=== PATIENT | female | born 1985 | race African-American/Black ===

== ENCOUNTER → 2019-08-13 15:37 | Outpatient (CLI) | payer OTHER, SELFPAY ==
[2019-08-13 17:51] LABS: Erythrocyte Sedimentation Rate 13 mm/hr (0-20)
[2019-08-13 18:01] LABS: CRP < 2.90 mg/L (0.0-3.0)
[2019-08-13 18:10] LABS: Vitamin B12 519 pg/mL (211-911)
== END ==
PROVIDERS: Family Provider Family Medicine; PCP Family Medicine; Visit Provider Family Medicine
DX: M25.551 Pain in right hip (principal); R20.2 Paresthesia of skin; G51.4 Facial myokymia
CPT/HCPCS: 36415; 82607; 85652; 86140

== ENCOUNTER → 2019-08-13 17:55 | Outpatient (CLI) | payer OTHER, SELFPAY ==
[2019-04-04 10:57] VITALS: BMI 23.5
--- NOTE | 2019-08-13 18:05 | RAD_ITS ---
STUDY: X-RAY - PELVIS AND RIGHT HIP REASON FOR EXAM: Female, 34 years old. Pain TECHNIQUE: 3 views of the pelvis and hip. COMPARISON: None. FINDINGS: There is a non-specific bowel gas pattern. Mild colonic fecal retention. Normal visualized soft tissue structures. Normal bilateral iliac wings, sacroiliac joints and visualized sacrum. Normal bilateral superior and inferior pubic rami. Normal pubic symphysis. Normal bilateral ischial tuberosities. Normal visualized femoral head. Normal acetabulum. Normal hip joint. RAD/HIP, UNI W/ Pelvis 2-3 Views IMPRESSION: Normal x-ray examination of the pelvis and hip. Electronically Signed: Alex Garner DO at 0:03 EDT Tel [phone], Service support ,
== END ==
PROVIDERS: Family Provider Family Medicine; PCP Family Medicine; Referring Provider Family Medicine; Visit Provider Family Medicine
DX: M25.551 Pain in right hip (principal)
CPT/HCPCS: 73502

== ENCOUNTER → 2020-12-25 | Outpatient (CLI) | payer BC, SELFPAY ==
[2020-12-25 13:08] VITALS: BMI 21.4
[2020-12-30 16:26] LABS: HPV APTIMA, High Risk Negative (Negative)
== END | disposition home or self-care (01) ==
LOC: LABSPEC 16:47
PROVIDERS: PCP Family Medicine; Referring Provider Obstetrics & Gynecology; Visit Provider Obstetrics & Gynecology
DX: Z12.4 Encounter for screening for malignant neoplasm of cervix (principal)
CPT/HCPCS: 87624; 88175; G0145